=== PATIENT | male | born 1950 | race Two or more races ===

== ENCOUNTER 2016-10-10 16:57 | Emergency (ER) | payer MEDICARE, BC ==
[2016-10-10] MEDS ORDERED: ONDANSETRON HCL INJ/PF 4 MG/2 ML SDV IV ONE (17:31)
[2016-10-10] MEDS ORDERED: MORPHINE SULFATE 10 MG/ML INJ IV ONE ×2 (17:31→20:58)
[2016-10-10] MEDS ORDERED: NORMAL SALINE 1000 ML 1,000 ML IV PRN (17:31)
--- NOTE | 2016-10-10 17:32 | ER Document Report ---
ED Medical Screen (RME) - General Chief Complaint: Abdominal Pain Stated Complaint: ABDOMINAL PAIN Time Seen by Provider: 10/10/16 17:21 Mode of Arrival: Wheelchair Information source: Patient TRAVEL OUTSIDE OF THE [place] IN LAST 30 DAYS: No - HPI Patient complains to provider of: Right upper quadrant abdominal pain Onset: Just prior to arrival Onset/Duration: Sudden Quality of pain: Sharp, Stabbing Severity: Severe Pain Level: 5 Associated Symptoms: Nausea Exacerbated by: Food Relieved by: Denies Similar symptoms previously: Yes Notes: 10/10/16 17:32 Patient is a 66-year-old male who presents to the emergency room complaining of right upper quadrant abdominal pain that is sharp and stabbing in nature and associated with nausea, is worsened after eating, he has had this pain previously and was seen at the emergency room and [place], had several tests performed at that time but reports that they did not find anything wrong, he does have a history of PA in the past with 5 cardiac stents, hiatal hernia and cirrhosis Past Medical History Renal/ Medical History: Denies: Hx Peritoneal Dialysis Physical Exam - Vital signs Vitals: Temp Pulse Resp BP Pulse Ox 97.4 F 74 18 106/59 L 93 10/10/16 16:58 10/10/16 16:58 10/10/16 16:58 10/10/16 16:58 10/10/16 16:58 Course - Vital Signs Vital signs: Temp Pulse Resp BP Pulse Ox 97.4 F 74 18 106/59 L 93 10/10/16 16:58 10/10/16 16:58 10/10/16 16:58 10/10/16 16:58 10/10/16 16:58
[2016-10-10 18:16] LABS: ABSOLUTE EOSINOPHILS # (AUTO) 0.1 10^3/uL (0.0-0.6); ABSOLUTE LYMPHOCYTES (AUTO) 1.4 10^3/uL (0.5-4.7); ABSOLUTE MONOCYTES (AUTO) 0.5 10^3/uL (0.1-1.4); BASOPHILS % (AUTO) 0.9 % (0-2); EOSINOPHILS % (AUTO) 1.4 % (0-6); HEMATOCRIT 41.1 % (37.9-51.0); HEMOGLOBIN 13.7 g/dL (13.5-17.0); LYMPHOCYTES % (AUTO) 27.5 % (13-45); MEAN CORPUSCULAR HEMOGLOBIN 33.2 pg (27.0-33.4); MEAN CORPUSCULAR HGB CONC 33.2 g/dL (32.0-36.0); MEAN CORPUSCULAR VOLUME 100 fl (80-97); MONOCYTES % (AUTO) 9.9 % (3-13); RED BLOOD COUNT 4.11 10^6/uL (4.35-5.55); RED CELL DISTRIBUTION WIDTH 14.4 % (11.5-14.0); SEGMENTED NEUTROPHILS % (AUTO) 60.3 % (42-78)
[2016-10-10 18:23] LABS: ALANINE AMINOTRANSFERASE 57 U/L (21-72); ALBUMIN 4.2 g/dL (3.5-5.0); ALKALINE PHOSPHATASE 201 U/L (38-126); ANION GAP 13 (5-19); ASPARTATE AMINO TRANSFERASE 77 U/L (17-59); BILIRUBIN,DIRECT 0.4 mg/dL (0.0-0.4); BILIRUBIN,TOTAL 0.9 mg/dL (0.2-1.3); BLOOD UREA NITROGEN 17 mg/dL (7-20); CARBON DIOXIDE 24 mmol/L (22-30); CHLORIDE 104 mmol/L (98-107); CREATINE KINASE 144 U/L (55-170); GLUCOSE 128 mg/dL (75-110); LIPASE 204.7 U/L (23-300); POTASSIUM 3.9 mmol/L (3.6-5.0); SODIUM 141.3 mmol/L (137-145); TOTAL PROTEIN 7.6 g/dL (6.3-8.2)
[2016-10-10 18:41] LABS: CREATINE KINASE MB 4.06 ng/mL (<4.55)
[2016-10-10 18:42] LABS: TROPONIN I < 0.012 ng/mL
--- NOTE | 2016-10-10 19:26 | RADIOLOGY REPORT (SQ) ---
EXAM DESCRIPTION: CHEST PA/LAT COMPLETED DATE/TIME: 10/10/2016 7:10 pm REASON FOR STUDY: right sided pain COMPARISON: None. EXAM PARAMETERS: NUMBER OF VIEWS: two views TECHNIQUE: Digital Frontal and Lateral radiographic views of the chest acquired. RADIATION DOSE: NA LIMITATIONS: none FINDINGS: LUNGS AND PLEURA: No opacities, masses or pneumothorax. No pleural effusion. MEDIASTINUM AND HILAR STRUCTURES: Giant air-fluid level in the retrocardiac region likely from retroc ardiac hernia containing the entire stomach. Gastric volvulus and gastric outlet obstruction could n ot be excluded HEART AND VASCULAR STRUCTURES: Heart normal size. No evidence for failure. BONES: No acute findings. HARDWARE: None in the chest. OTHER: No other significant finding. IMPRESSION: Large air-fluid level in the retrocardiac region likely the stomach in the retrocardiac hernia. Gastric volvulus and gastric outlet obstruction may be present. TECHNICAL DOCUMENTATION: JOB ID: [id number] [employer]- All Rights Reserved
--- NOTE | 2016-10-10 19:44 | RADIOLOGY REPORT (SQ) ---
EXAM DESCRIPTION: U/S ABDOMEN LIMITED W/O DOP COMPLETED DATE/TIME: 10/10/2016 7:13 pm REASON FOR STUDY: pain COMPARISON: None. TECHNIQUE: Dynamic and static grayscale images acquired of the abdomen and recorded on PACS. Additio nal selected color Doppler and spectral images recorded. LIMITATIONS: Midline bowel gas FINDINGS: PANCREAS: Not well seen LIVER: Nodular contour worrisome for cirrhosis. 2 cm cyst left lobe liver. 1 cm calcification right lobe liver near the gissel hepatis of uncertain clinical significance. LIVER VASCULATURE: Normal directional flow of the main portal vein and hepatic veins. GALLBLADDER: Small shadowing stone in the gallbladder fundus. No definite gallbladder wall thickenin g or pericholecystic fluid. ULTRASOUND-DETECTED VALENZUELA'S SIGN: Negative. INTRAHEPATIC DUCTS AND COMMON DUCT: No intrahepatic biliary ductal dilatation. Extra hepatic bile du ct not well seen due to duodenum gas INFERIOR VENA CAVA: Not well seen AORTA: Not well seen RIGHT KIDNEY: Normal size. Normal echogenicity. No solid or suspicious masses. No hydronephrosis. No calcifications. PERITONEAL AND RIGHT PLEURAL SPACE: No ascites or effusions. OTHER: No other significant findings. IMPRESSION: Nodular contour of the liver with coarse echotexture from cirrhosis. Small stone in the gallbladder fundus without ultrasound evidence of acute cholecystitis Limited visualization of the extrahepatic biliary ducts, nonvisualization of pancreas, abdominal aort a and vena cava TECHNICAL DOCUMENTATION: JOB ID: [id number] [employer]- All Rights Reserved
[2016-10-10 21:21] LABS: BILIRUBIN,URINE NEGATIVE (NEGATIVE); GLUCOSE, URINE NEGATIVE (NEGATIVE); KETONES,URINE TRACE mg/dL (NEGATIVE); LEUKOCYTE ESTERASE,URINE NEGATIVE (NEGATIVE); NITRITE,URINE NEGATIVE (NEGATIVE); PROTEIN,URINE 100 mg/dL (NEGATIVE); URINE SPECIFIC GRAVITY 1.019
[2016-10-10 21:24] LABS: APPEARANCE,URINE SLIGHTLY-CLOUDY
--- NOTE | 2016-10-10 21:25 | ER Document Report ---
ED GI/ - General Mode of Arrival: Wheelchair Information source: Patient, Relative - spouse TRAVEL OUTSIDE OF THE [place] IN LAST 30 DAYS: No - HPI Onset: Just prior to arrival - Refer to HPI notes Associated symptoms: Chills, Diarrhea, Nausea, Vomiting Similar symptoms previously: Yes Recently seen / treated by doctor: Yes <MAYTE PEÑA - Last Filed: 10/10/16 22:17> <EM MORSE - Last Filed: 10/11/16 00:27> - General Chief Complaint: Abdominal Pain Stated Complaint: ABDOMINAL PAIN Time Seen by Provider: 10/10/16 17:21 Notes: Patient is a 66-year-old male presenting to the emergency department for abdominal pain. Patient states he has had this pain acutely over the last 3 months; this episode of pain this evening during dinner and has continued. Patient describes his pain as sharp and stabbing and it wraps around into his back. Patient also has nausea, headache, and chills. Patient states his pain is exacerbated with food. Patient states he has been trying to eat smaller meals more often. Patient states he has some relief if he holds his right upper quadrant. Patient states he has to immediately go to the bathroom after eating to have a bowel movement. Patient had a loose bowel movement this morning and he also had some loose stool on his undergarments when he woke up this morning. 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 Patient also has a history of [place] and cardiac stents x5. Patient was taking bloodthinners but was taken off of them in June, he also stopped taking daily Aspirin at this time. Patient had an endoscopy in June. Patient's doctors are primarily located in [place] and he has been evaluated for this pain in the past being related to his displaced stomach. Patient was eating in [facility] so they came to the closest hospital. Patient has no known allergies. (MAYTE PEÑA) - Related Data Allergies/Adverse Reactions: No Known Allergies Allergy (Verified 10/10/16 17:32) Past Medical History - General Information source: Patient - Social History Smoking Status: Never Smoker Cigarette use (# per day): No Chew tobacco use (# tins/day): No Frequency of alcohol use: None Drug Abuse: None Family History: None Patient has suicidal ideation: No Patient has homicidal ideation: No - Past Medical History Cardiac Medical History: Reports: Hx Heart Attack - x2, Hx Hypertension GI Medical History: Reports: Hx Cirrhosis, Hx Hiatal Hernia, Hx Endoscopy Past Surgical History: Reports: Hx Cardiac Surgery - 5 stents <EULALIAZIONMAYTE - Last Filed: 10/10/16 22:17> Review of Systems - Review of Systems Constitutional: See HPI, Chills, Malaise EENT: No symptoms reported Cardiovascular: No symptoms reported Respiratory: No symptoms reported Gastrointestinal: See HPI, Abdominal pain, Diarrhea, Nausea Genitourinary: No symptoms reported Male Genitourinary: No symptoms reported Musculoskeletal: No symptoms reported Skin: No symptoms reported Hematologic/Lymphatic: No symptoms reported Neurological/Psychological: No symptoms reported -: Yes All other systems reviewed and negative <MAYTE PEÑA - Last Filed: 10/10/16 22:17> Physical Exam <MAYTE PEÑA - Last Filed: 10/10/16 22:17> <EM MORSE - Last Filed: 10/11/16 00:27> - Vital signs Vitals: Temp Pulse Resp BP Pulse Ox 97.4 F 74 18 106/59 L 93 10/10/16 16:58 10/10/16 16:58 10/10/16 16:58 10/10/16 16:58 10/10/16 16:58 - Notes Notes: GENERAL: Alert, interacts well, appears uncomfortable. Tremors/shaking to his entire body. No acute distress. HEAD: Normocephalic, atraumatic. EYES: Pupils equal, round, and reactive to light. Extraocular movements intact. ENT: Oral mucosa moist, tongue midline. NECK: Full range of motion. Supple. Trachea midline. LUNGS: Clear to auscultation bilaterally, no wheezes, rales, or rhonchi. No respiratory distress. HEART: Regular rate and rhythm. No murmurs, gallops, or rubs. ABDOMEN: No reproducible tenderness to palpation in all areas of the abdomen. Slightly decreased pain with pressure to the right upper rib cage. Non- distended. bowel sounds present in all 4 quadrants. EXTREMITIES: Moves all 4 extremities spontaneously. No edema, radial pulses 2/4 bilaterally. No cyanosis. NEUROLOGICAL: Alert and oriented x3. Normal speech. No focal neurological deficits. Patient has a tremor to his entire body. PSYCH: Normal affect, normal mood. SKIN: Warm, dry, normal turgor. No rashes or lesions noted. (MAYTE PEÑA) Course - Laboratory Result Diagrams: 10/10/16 17:50 10/10/16 17:50 <MAYTE PEÑA - Last Filed: 10/10/16 22:17> - Laboratory Result Diagrams: 10/10/16 17:50 10/10/16 17:50 <EM MORSE - Last Filed: 10/11/16 00:27> - Re-evaluation Re-evalutation: 10/10/16 23:35 CBC shows low platelets consistent with liver disease otherwise unremarkable, CMP shows hyperglycemia with a glucose of 128, AST elevated 77, alk phos elevated 201, total and direct bilirubin unremarkable, no evidence of obstructive biliary process, cardiac enzymes negative, lipase normal, urinalysis shows trace ketones and some urobilinogen no signs of infection. Abdominal ultrasound shows nodular liver with coarse echotexture from cirrhosis , small stone in the gallbladder fundus without ultrasound evidence of acute cholecystitis. X-ray shows large air-fluid level in the retrocardiac region likely the stomach in the retrocardiac hernia, gastric volvulus and gastric outlet obstruction may be present. I discussed this finding with Dr. Beltre, we then performed a CT scan of the chest with oral contrast, it showed that the contrast progresses well through the stomach which makes high-grade obstruction unlikely. Pain is likely coming from the large retrocardiac hiatal hernia. Patient has had several burps while he has been here and this is made him feel somewhat better. Patient is re: been recommended to take Gaviscon by his GI doctor however he feels like he is taking it for no reason. I did recommend the patient follow-up with his warehouse order puller as an outpatient to further explore the possibility of a Caroline fundoplication or other treatment for hiatal hernias. Patient is already aware that he should lose weight which is already started doing, aware that he should wear clothing with a loose waistband , avoid soda and eat smaller meals. I do not see any other etiology for the patient's pain at this time, no evidence of infection or heart attack. Patient will be discharged to home. 10/10/16 23:37 Patient's mouth got dry while he was waiting for the results of his CT scan, he was aware that he is not allowed to have anything to eat or drink however he is afraid that his tongue would stick to the roof his mouth and then he would not be able to swallow and that he might stop breathing so the patient developed a panic attack and had some ice chips. After having ice chips and drinking water all the sensations resolved and he feels much better. (EM MORSE) - Vital Signs Vital signs: Temp Pulse Resp BP Pulse Ox 98.9 F 72 18 121/56 L 91 L 10/10/16 23:48 10/10/16 23:48 10/10/16 23:48 10/10/16 23:48 10/10/16 23:48 - Laboratory Laboratory results interpreted by me: 10/10/16 10/10/16 10/10/16 17:50 17:50 20:17 RBC 4.11 L MCV 100 H RDW 14.4 H Plt Count 70 L Glucose 128 H AST 77 H Alkaline Phosphatase 201 H Urine Protein 100 H Urine Ketones TRACE H Urine Urobilinogen 2.0 H Urine Ascorbic Acid 40 H - EKG Interpretation by Me Additional EKG results interpreted by me: 10/10/16 23:39 EKG shows sinus rhythm at a rate of 61, right bundle branch block, left anterior hemiblock, slight ST segment elevation isolated to V2, no ST segment depressions, no inappropriate T-wave inversions, there is rapid R-wave progression, per my interpretation. (EM MORSE) Discharge <MAYTE PEÑA - Last Filed: 10/10/16 22:17> <EM MORSE - Last Filed: 10/11/16 00:27> - Discharge Clinical Impression: Retrocardiac hiatal hernia, Hiatal hernia with gastroesophageal reflux disease and esophagitis Condition: Stable Disposition: HOME, SELF-CARE Additional Instructions: Please call your warehouse order puller to further discuss possible solutions for your hiatal hernia which continues to cause you a great deal of pain. Today your hiatal hernia was predominantly retrocardiac in location. This is likely what is causing all of your pain. We did not find any problems with your gallbladder, no evidence of obstruction or infection. You do have a small stone but it is not blocking anything. You should discuss with your warehouse order puller other solutions for your hiatal hernia which may include a Caroline fundoplication. Referrals: MARCSU SELLERS MD [Primary Care Provider] - Follow up in 1 week Scribe Attestation: 10/11/16 00:27 I personally performed the services described in the documentation, reviewed and edited the documentation which was dictated to the scribe in my presence, and it accurately records my words and actions. (EM MORSE) Scribe Documentation - Scribe Written by Emma:: Emma Gallardo, 10/10/2016 22:12 acting as scribe for :: Terry <MAYTE PEÑA - Last Filed: 10/10/16 22:17>
--- NOTE | 2016-10-10 23:04 | RADIOLOGY REPORT (SQ) ---
EXAM DESCRIPTION: CT CHEST WITH COMPLETED DATE/TIME: 10/10/2016 10:33 pm REASON FOR STUDY: ct chest with oral contrast, possible gastric volv COMPARISON: Abdominal ultrasound 10/10/2016 Two-view chest 10/10/2016 TECHNIQUE: CT scan of the chest performed using helical scanning technique with oral contrast only. Images reviewed with lung, soft tissue and bone windows. Reconstructed coronal and sagittal MPR carla ges reviewed. All images stored on PACS. All CT scanners at this facility use dose modulation, iterative reconstruction, and/or weight based d osing when appropriate to reduce radiation dose to as low as reasonably achievable (ALARA). [facility]: Dose Right [facility]: CareDose [facility]: Dose Right [facility]: Teradose 4D [facility]: Smart BCNX CONTRAST TYPE AND DOSE: Oral contrast only RENAL FUNCTION: Not required RADIATION DOSE: 12.21 . LIMITATIONS: None. FINDINGS: Patient has a retrocardiac hernia containing the GE junction, gastric fundus, and body. Patient drank dilute Omnipaque contrast. Contrast fills the intrathoracic portion of the stomach, ou tlines narrowing at the diaphragmatic hiatus on coronal images 36-40. There is contrast which fills the gastric antrum, pylorus duodenum and proximal small bowel. This suggests against high-grade obst ruction at the diaphragmatic hiatus. LUNGS AND PLEURA: No opacities, nodules, masses. No pneumothorax. No effusions. HILAR AND MEDIASTINAL STRUCTURES: Large retrocardiac hernia containing the majority of the stomach HEART AND VASCULAR STRUCTURES: No aneurysm or dissection. No central pulmonary emboli. No pericardi al effusion. Heavy coronary artery calcification HARDWARE: None in the chest. UPPER ABDOMEN: Tiny stones in the gallbladder. Small liver with nodular contour from cirrhosis. Spl enomegaly, 14 cm in length. No CT signs of pancreatitis. THYROID AND OTHER SOFT TISSUES: No masses. No adenopathy. BONES: No significant finding. OTHER: No other significant finding. IMPRESSION: Large retrocardiac hernia containing nearly the entire stomach. There is no evidence of high-grade gastric outlet obstruction, oral contrast passes through the diaphragmatic hiatus into th e gastric antrum and pylorus and proximal small bowel. Nodular liver from cirrhosis. Splenomegaly. No CT evidence of acute pancreatitis. Tiny stones in the gallbladder TECHNICAL DOCUMENTATION: JOB ID: [id number] Quality ID # [id number]: Final reports with documentation of one or more dose reduction techniques (e.g., Au tomated exposure control, adjustment of the mA and/or kV according to patient size, use of iterative reconstruction technique) 2010 [employer]- All Rights Reserved
[2016-10-11 01:58] VITALS: BP 116/56
--- NOTE | 2016-10-11 10:24 | EKG REPORT ---
SEVERITY:- ABNORMAL ECG - SINUS RHYTHM RBBB AND LAFB : Confirmed by: Cindy Acosta MD 11-Oct-2016 10:23:28
== END 2016-10-11 01:55 | disposition home or self-care (01) ==
LOC: ER 16:57
DX: K21.9 Gastro-esophageal reflux disease without esophagitis (principal); K44.9 Diaphragmatic hernia without obstruction or gangrene; K74.60 Unspecified cirrhosis of liver; K80.20 Calculus of gallbladder without cholecystitis without obstruction; D69.6 Thrombocytopenia, unspecified; R73.9 Hyperglycemia, unspecified; R25.1 Tremor, unspecified; R68.83 Chills (without fever); R19.7 Diarrhea, unspecified; R11.2 Nausea with vomiting, unspecified; R51 Headache; R10.9 Unspecified abdominal pain; R53.81 Other malaise; R68.2 Dry mouth, unspecified; F41.0 Panic disorder [episodic paroxysmal anxiety]; I45.10 Unspecified right bundle-branch block; I25.2 Old myocardial infarction; I10 Essential (primary) hypertension; Z98.61 Coronary angioplasty status; Z83.79 Family history of other diseases of the digestive system
CPT/HCPCS: 93005; 96376; 99285; 96361; 96374; 96375; 36415; 82553; 82550; 83690; 85025; 80053; 81001; 84484; 71020; 76705; 71260; 93010; J2270; J2405; J7030